=== PATIENT | male | born 1985 | race Caucasian/White ===

== ENCOUNTER 2018-05-09 03:36 | Emergency (ER) | payer MEDICAID ==
[~2018-05-09] VITALS: Ht 190.5 cm; Wt 97.7 kg
[2018-05-09] MEDS ORDERED: HYDROcodone/acetaminophen 10/325mg tab PO ONE (04:00)
[2018-05-09] MEDS ORDERED: IBUP-1986 PO (04:39)
[2018-05-09] MEDS ORDERED: HYDR-569 PO (04:39)
== END 2018-05-09 05:13 | disposition home or self-care (01) ==
LOC: ER 03:36
DX: S50.11XA Contusion of right forearm, initial encounter (principal); S50.01XA Contusion of right elbow, initial encounter; S40.011A Contusion of right shoulder, initial encounter; Z79.899 Other long term (current) drug therapy; Y08.89XA Assault by other specified means, initial encounter; Y93.89 Activity, other specified; Y92.89 Other specified places as the place of occurrence of the external cause; Y99.8 Other external cause status
CPT/HCPCS: 73030; 73090; 99284